=== PATIENT | male | born 1970 | race Caucasian/White ===

== ENCOUNTER 2017-02-13 10:10 | Inpatient (IN) | payer BC ==
[~2017-02-13 10:10] MED LIST: ACETAMINOPHEN 500 MG TAB PO ONE; PREGABALIN 150 MG CAP PO ONE
[2017-02-13] MEDS ORDERED: BUPIVACAINE/EPI 0.25% 30 ML SDV ONE ×2 (10:26→13:07)
[2017-02-13] MEDS ORDERED: ACETAMINOPHEN 500 MG TAB ONE (10:30)
[2017-02-13] MEDS ORDERED: PREGABALIN 150 MG CAP ONE (10:31)
[2017-02-13] MEDS ORDERED: CEFAZOLIN 2 GM/DEXTROSE/100 ML BAG IV ONE (10:31)
[2017-02-13] MEDS ORDERED: LIDOCAINE 1% 2 ML INJ ONE (10:32)
[2017-02-13] MEDS ORDERED: ceFAZolin 2 GM/DEXTROSE 100 ML IV ONE (12:00)
[2017-02-13] MEDS ORDERED: DEXAMETHASONE 4 MG/ML VIAL ONE ×2 (13:02)
[2017-02-13] MEDS ORDERED: fentaNYL 100 MCG/2 ML INJ ONE (13:03)
[2017-02-13] MEDS ORDERED: PROPOFOL/EMULSION 500 MG/50 ML BOTTLE IV ONE (13:03)
[2017-02-13] MEDS ORDERED: ONDANSETRON 4 MG/2 ML VIAL ONE (13:04)
[2017-02-13] MEDS ORDERED: LIDOCAINE 2% JELLY 5 ML TUBE ONE (13:04)
[2017-02-13] MEDS ORDERED: LIDOCAINE 2% 100 MG/5 ML SYR ONE (13:04)
[2017-02-13] MEDS ORDERED: MIDAZOLAM 2 MG/2 ML VIAL ONE (13:20)
[2017-02-13] MEDS ORDERED: morphINE PF 5 MG/10 ML INJ ONE (14:43)
[2017-02-13] MEDS ORDERED: PROPOFOL 200 MG/20 ML VIAL ONE (15:17)
[2017-02-13] MEDS ORDERED: BISACODYL 10 MG SUPP PR PRN (16:27)
[2017-02-13] MEDS ORDERED: POLYETHYLENE GLYCOL 3350 17 GM PKT PO PRN (16:27)
[2017-02-13] MEDS ORDERED: LACTULOSE 20 GM/30 ML UDCUP PO PRN (16:27)
[2017-02-13] MEDS ORDERED: ACETAMINOPHEN 325 MG TAB PO PRN (16:27)
[2017-02-13] MEDS ORDERED: ONDANSETRON 4 MG/2 ML VIAL IVP PRN ×2 (16:27→17:44)
[2017-02-13] MEDS ORDERED: MAGNESIUM HYDROXIDE 30 ML UDCUP PO PRN (16:27)
[2017-02-13] MEDS ORDERED: ALBUTEROL 60 PUFFS/8 GM MDI IH PRN (16:43)
[2017-02-13] MEDS ORDERED: TESTOSTERONE CYP IM SCH (16:45)
[2017-02-13] MEDS ORDERED: NALOXONE HCL 0.4 MG/ML INJ IVP PRN (17:44)
[2017-02-13] MEDS ORDERED: NARCOTIC DRIP BAG-TOTAL ALL TYPES EP PRN (17:44)
[2017-02-13] MEDS ORDERED: HYDROmorph 10MCG/ML&BUP 0.0625% in 100ML NS EP SCH (17:44)
[2017-02-13] MEDS ORDERED: diphenhydrAMINE 25 MG CAP PO PRN (17:44)
[2017-02-13] MEDS ORDERED: METOCLOPRAMIDE 10 MG/2 ML VIAL IVP PRN (17:44)
[2017-02-13] MEDS: SENNOSIDES/DOCUSATE SODIUM TAB PO SCH (21:19)
--- NOTE | 2017-02-13 23:37 | SUROPNOTE ---
[facility] Operative Report - Surgery OPERATION NOTE on Maurice Leal Surgery was performed at [facility] 13/02/17 Diagnosis:Retro torsion of femur Left, EBONY Indication: Failure to obtain satisfactory results with long standing conservative measures. Surgeon: Santana Gauthier MD A R Collections Rep: Luisito Smallwood MD Anaesthetic: General Operation: Open left derotational femoral osteotomy Procedure: Maurice was positioned supine on a distraction table, with the legs in a scissors position (operated leg leveled, contra-lateral leg hyperextended) so fluoroscopy could obtain both AP and lateral views. A 5 cm incision was made proximal to the greater trochanter (GT). Using a drill guide and a drill, an entry point was established at the tip of the GT followed by introduction of ball-tip guide wire introduced through the femoral canal. After measurements of required nail length and width, rimming was performed to 11 mm (in 0.5 mm increments) distal to the femoral isthmus. Rimming to 12.5 mm was performed to the level of the area of the planned osteotomy. An intramedullary saw (12 mm) was introduced into the femoral canal, 5 cm below the lesser trochanter. In small increments, the medullary saw performed a circumferential inside out cut through the femur. This cut was completed in an outside-in manner using a 4 mm osteotome. Just before the osteotomy was complete and displacement was confirmed with fluoroscopy, 2 Valeria pins were drilled into the femur bone ( one to the lateral GT, one to the supra-condylar region of the distal femur). Using fluoroscopic guidance the angle between the Valeria pins as measured with a goniometer and boot scale, the derotational osteotomy was performed by rotating the foot intward. The correction planned and obtained was approximately 25 degrees (internal rotation of the femur to a relative ante torsion). A 9 mm diameter/ 380 mm length inflatable nail was introduced into the femoral canal and was inflated with saline to obtain good intra-medullary purchase. Post-operative X-rays were obtained to confirm position and location of nail. Valeria pins were removed, ITB was approximated, and sub-cutis and skin layers were closed with absorbable suture/nylon/stables. After surgery, Maurice moved both lower limbs and had no NV compromise. ROM in neutral hip corresponded well with the torsion change. Evaluation under Anesthesia: Pre Hip scope: IR90 ER90 ABD Flexion Right 5 50 40 95 Left 5 40 40 95 Post: IR 90 Left 25 Post op instructions: 1. Nonweight bearing crutches for 6 weeks 2. Pain killers as prescribed 3. Follow up visit with me, as scheduled, where a rehab protocol would be discussed 4. Avoid hip external rotation for 4 weeks 5. Continuous SCDs Kind regards, Dr. Santana Gauthier .
[2017-02-14] MEDS: DIAZEPAM 2 MG TAB PO PRN ×2 (04:16→21:32)
[2017-02-14 05:22] LABS: HEMATOCRIT 43.7 % (40.0-51.0); HEMOGLOBIN 14.3 g/dL (13.7-17.5); MEAN CELL HEMOGLOBIN 29.1 pg (27.9-34.1); MEAN CELL HEMOGLOBIN CONCENTR. 32.7 g/dL (32.4-36.7); MEAN CELL VOLUME 88.8 fL (81.5-99.8); RED BLOOD CELL COUNT 4.92 10^6/uL (4.40-6.38); RED CELL DISTRIBUTION WIDTH 13.7 % (11.5-15.2)
[2017-02-14 05:40] LABS: ANION GAP 13 mEq/L (8-16); CARBON DIOXIDE 20 mEq/l (22-31); CHLORIDE 104 mEq/L (97-110); CREATININE 1.3 mg/dL (0.7-1.3); GLOMERULAR FILTRATION RATE 60; GLUCOSE 162 mg/dL (70-100); POTASSIUM 4.8 mEq/L (3.5-5.2); SODIUM 137 mEq/L (134-144)
[2017-02-14] MEDS: PANTOPRAZOLE SODIUM 40 MG TAB PO SCH (10:21)
[2017-02-14] MEDS: SENNOSIDES/DOCUSATE SODIUM TAB PO SCH ×2 (10:21→21:32)
[2017-02-14] MEDS: THYROID 60 MG TAB PO SCH (10:21)
[2017-02-14] MEDS: DC NARCS MISC SCH (10:22)
[2017-02-14] MEDS: REGARDING ANTICOAG MISC SCH (10:22)
--- NOTE | 2017-02-14 15:21 | SOAPPROG ---
SOAP Progress Note Assessment/Plan: Assessment: POD #1 s/p DFO L left side. Cath site clean and dry Prefers to leave the epidural running until other issues are sorted out. Plan: 02/14/17 15:[address] Coffman consulted regarding possible ureteral stone. Ambulate as needed. Reeval this PM Subjective: pt. complains of hiccups, nausea, flank pain, "just like my kidney stones feel" . No significant surgical pain. Objective: Vital Signs Temp Pulse Resp BP Pulse Ox 37.3 C 99 18 124/71 H 88 L 02/14/17 12:01 02/14/17 12:01 02/14/17 12:01 02/14/17 12:01 02/14/17 12:01 Laboratory Results 02/14/17 04:45 02/14/17 04:45 02/13/17 02/14/17 02/15/17 05:59 05:59 05:59 Intake Total 2009 Output Total 550 450 Balance 1460 -450 good strength in extremities - Time Spent With Patient Time Spent With Patient: 15 miniutes with patient and family ICD10 Worksheet Patient Problems: Problems Problem Status Onset Femoral abnormality Acute - ICD10 Problem Qualifiers (1) Femoral abnormality
--- NOTE | 2017-02-14 16:29 | GCON ---
[f rep st] CONSULTATION DATE OF CONSULTATION: 02/14/2017 REASON FOR CONSULT: History of renal stones, right back pain, nausea. HPI: This is a 47-year-old man, who is from [place], but came up to [place] to have a procedure done with Dr. Gauthier for a retrotorsion of the left femur. It appears that patient underwent the left femoral procedure without difficulty. Today, he began to experience right lower back pain, moderate in severity. Pain has been persistent and not radiating. Patient occasionally with movement will experience pain through the urethra; however, he does have a catheter in place. He has not seen any blood in the catheter bag. Does have nausea. He has a significant history of kidney stones and indeed passed a stone last week. He estimates he passes several stones yearly, and this has been going on for many years. He does have a urologist at home in [place] but has not pursued further metabolic workup for kidney stone management. PAST MEDICAL HISTORY: Includes kidney stones and retrotorsion of left femur. PAST SURGICAL HISTORY: Cholecystectomy. MEDICATIONS: Please refer to patient's chart. ALLERGIES: Adhesive tape, latex, penicillins, tiotropium bromide. FAMILY HISTORY: Significant for kidney stones with father. SOCIAL HISTORY: Patient lives in [place], is in the room with his parents. Again , visiting from [place]. PHYSICAL EXAMINATION: VITAL SIGNS: Blood pressure 124/71, heart rate 99, respiratory rate 18, O2 88 on room air, temperature 37.3. General: well developed, well nourished male in no distress HEENT: NCAT, EOM intact Neck: supple, no lAD Resp: normal breath sounds, no respiratory distress Cards: regular rate and rhythm, no lower extremity edema GI: Abd soft, nondistended, nontender to palpation : No CVA tenderness, no bladder tenderness or distention. catheter in place draining clear urine. Normal penis, testicles descended bilaterally and without tenderness MS: patient was supine but able to move upper extremities without difficulty. inteugment: normal skin color, no pallor Neuor: alert and oriented, affect appropriate to situation LABS: White blood cell count 14.75, hemoglobin 14.3, hematocrit 43.7, platelets 343. Chemistry: Sodium 137, potassium 4.8, chloride 104, carbon dioxide 20, anion gap 13, BUN 24, creatinine 1.3, glucose 162, calcium 9.0. Patient has had an x-ray done of the abdomen: Gallbladder clips present. No obvious stones noted on my read, but report is not in from radiologist. ASSESSMENT/PLAN: History of kidney stones, right lower back pain. Patient is scheduled to have a CAT scan done later today. Will withhold Flomax for now given recent orthopedic procedure on femur and increased vulnerability to falls. I have discussed with the patient that we would be unlikely to recommend surgical intervention unless he is having uncontrolled pain (which was well managed at time of exam today), hydronephrosis or UTI. He was satisfied with the care plan. I did encourage him to pursue further metabolic workup for kidney stones back in [place] with his primary urologist. . /[id number]/MODL MTDD
[2017-02-14 17:14] LABS: COLOR YELLOW; LEUKOCYTE ESTERASE,URINE NEGATIVE (NEGATIVE); NITRITE,URINE NEGATIVE (NEGATIVE)
[2017-02-14 17:18] LABS: RBC,URINE 25-50 /hpf (0-3)
--- NOTE | 2017-02-14 19:36 | SOAPPROG ---
SOAP Progress Note Assessment/Plan: Assessment: 1 day post op Left derotational femoral osteotomy Plan: Wean down PCEA tomorrow per Dr. Santos Transition to oral analgesia tomorrow Up with PT/OT Active Care continuous ASA 81 mg Post op instructions: 1. Nonweight bearing crutches for 6 weeks 2. Avoid hip external rotation for 4 weeks 3. Continuous SCDs 4. ASA 81mg 1 month 02/14/17 19:36 02/14/17 19:39 02/14/17 19:43 Subjective: Maurice's had a rough few hours since surgery. His work up for flank pain was negative for stones. He's now feeling much better, well pain controlled with PCEA. No cp, sob or nausea. Objective: Vital Signs Temp Pulse Resp BP Pulse Ox 37.1 C 95 19 120/73 93 02/14/17 19:31 02/14/17 19:31 02/14/17 19:31 02/14/17 19:31 02/14/17 19:31 Laboratory Results 02/14/17 04:45 02/14/17 04:45 02/13/17 02/14/17 02/15/17 05:59 05:59 05:59 Intake Total 2009 1500 Output Total 550 450 Balance 1460 1050 Well appearing in NAD Left hip: scattered ecchymosis dressings dry No LFCN numbness NVI distally Full ROM of left foot and ankle - Pending Discharge Pending Discharge Within 48 Hours: Yes Pending Discharge Date: 02/16/17 Pending Discharge Time: 11:00 ICD10 Worksheet Patient Problems: Problems Problem Status Onset Femoral abnormality Acute
[2017-02-15] MEDS: DIAZEPAM 2 MG TAB PO PRN (04:24)
[2017-02-15] MEDS ORDERED: oxyCODONE IR 5 MG TAB PO PRN ×2 (06:00→10:23)
[2017-02-15] MEDS: HYDROmorphONE/DILAUDID 4 MG TAB PO PRN ×5 (06:15→23:28)
[2017-02-15] MEDS: SENNOSIDES/DOCUSATE SODIUM TAB PO SCH ×2 (07:42→20:41)
[2017-02-15] MEDS: PANTOPRAZOLE SODIUM 40 MG TAB PO SCH ×2 (07:42→08:24)
[2017-02-15] MEDS: DC NARCS MISC SCH (08:24)
[2017-02-15] MEDS: REGARDING ANTICOAG MISC SCH (08:24)
[2017-02-15] MEDS ORDERED: ESOMEPRAZOLE MAGNESIUM 22.3 MG PO SCH (09:00)
[2017-02-15] MEDS ORDERED: DIAZEPAM 5 MG TAB ONE (10:19)
[2017-02-15] MEDS: THYROID 60 MG TAB PO SCH (10:24)
[2017-02-15] MEDS: DIAZEPAM 5 MG TAB PO PRN ×3 (10:24→23:28)
[2017-02-15] MEDS: ONDANSETRON DISINTEGRATING 4 MG TAB PO PRN ×3 (13:08→23:28)
[2017-02-15] MEDS: ESOMEPRAZOLE MAGNESIUM 22.3 MG PO SCH (13:09)
[2017-02-15] MEDS: ASPIRIN EC 81 MG TAB PO SCH (16:48)
--- NOTE | 2017-02-15 18:18 | SOAPPROG ---
SOAP Progress Note Assessment/Plan: Assessment: POD #1 s/p DFO L left side. Cath site clean and dry Prefers to leave the epidural running until other issues are sorted out. 3/ POD #2 s/p L DFO Hiccups better. Blood in urine, ?ojeda vs stone. Pain okay on po meds and no JULIO. Will pull JULIO Plan: 02/14/17 15:[address] Coffman consulted regarding possible ureteral stone. Ambulate as needed. Reeval this PM 02/15/17 18:16 JULIO out, tip intact po meds Objective: Vital Signs Temp Pulse Resp BP Pulse Ox 37.6 C 112 H 14 103/79 93 02/15/17 16:00 02/15/17 16:00 02/15/17 16:00 02/15/17 16:00 02/15/17 16:00 Laboratory Results 02/14/17 04:45 02/14/17 04:45 02/14/17 02/15/17 02/16/17 05:59 05:59 05:59 Intake Total 2009 1800 750 Output Total 550 1450 450 Balance 1460 350 300 ICD10 Worksheet Patient Problems: Problems Problem Status Onset Femoral abnormality Acute - ICD10 Problem Qualifiers (1) Femoral abnormality
[2017-02-16] MEDS: HYDROmorphONE/DILAUDID 4 MG TAB PO PRN ×5 (05:26→23:07)
[2017-02-16] MEDS: ONDANSETRON DISINTEGRATING 4 MG TAB PO PRN ×4 (05:27→23:07)
[2017-02-16] MEDS: SENNOSIDES/DOCUSATE SODIUM TAB PO SCH ×2 (07:41→20:35)
[2017-02-16] MEDS: ASPIRIN EC 81 MG TAB PO SCH (07:41)
[2017-02-16] MEDS: DIAZEPAM 5 MG TAB PO PRN ×3 (07:42→20:35)
[2017-02-16] MEDS: DC NARCS MISC SCH (07:43)
[2017-02-16] MEDS: REGARDING ANTICOAG MISC SCH (07:43)
[2017-02-16] MEDS: THYROID 60 MG TAB PO SCH (09:38)
[2017-02-16] MEDS: ESOMEPRAZOLE MAGNESIUM 22.3 MG PO SCH (12:14)
--- NOTE | 2017-02-16 14:18 | SOAPPROG ---
PALLAVI Progress Note Assessment/Plan: Assessment: 3 day post op Left derotational femoral osteotomy Plan: Dilaudid 4mg Up with PT/OT Active Care continuous ASA 81 mg Home tomorrow Femur X-Ray from Monday shows good alignment Post op instructions: 1. Nonweight bearing crutches for 6 weeks 2. Avoid hip external rotation for 4 weeks 3. Continuous SCDs 4. ASA 81mg 1 month 02/14/17 19:36 02/14/17 19:39 02/14/17 19:43 02/16/17 14:14 Subjective: Maurice was up with PT during our visit. His pain has been well controlled with the Dilaudid (the transition from PCEA to oral analgesia went fairly smoothly), muscle spasms well controlled with Valium. He's been having some nausea with taking the Dilaudid but this is well controlled. He feels ready to go when he can go up/down stairs. Objective: Vital Signs Temp Pulse Resp BP Pulse Ox 37.0 C 101 H 18 115/77 93 02/16/17 11:56 02/16/17 11:56 02/16/17 11:56 02/16/17 11:56 02/16/17 11:56 Laboratory Results 02/14/17 04:45 02/14/17 04:45 02/15/17 02/16/17 02/17/17 05:59 05:59 05:59 Intake Total 1800 750 Output Total 1450 650 Balance 350 100 Well appearing in NAD Left leg: scattered ecchymosis dressings dry some edema some LFCN numbness NVI distally full ROM of foot and ankle - Pending Discharge Pending Discharge Within 24 Hours: Yes Pending Discharge Date: 02/17/17 Pending Discharge Time: 11:00 ICD10 Worksheet Patient Problems: Problems Problem Status Onset Femoral abnormality Acute
--- NOTE | 2017-02-16 14:55 | SOAPPROG ---
SOAP Progress Note Assessment/Plan: Assessment: Plan: 02/16/17 14:54 Saw Maurice last night (9pm, 02/15) POD 2. HE was doing well, NV intact, pain well managed. Xr today looks good. We will plan on discharge once cleared by OT/PT and pain well controlled. Dr Gauthier Objective: Vital Signs Temp Pulse Resp BP Pulse Ox 37.0 C 101 H 18 115/77 93 02/16/17 11:56 02/16/17 11:56 02/16/17 11:56 02/16/17 11:56 02/16/17 11:56 Laboratory Results 02/14/17 04:45 02/14/17 04:45 02/15/17 02/16/17 02/17/17 05:59 05:59 05:59 Intake Total 1800 750 500 Output Total 1450 650 400 Balance 350 100 100 ICD10 Worksheet Patient Problems: Problems Problem Status Onset Femoral abnormality Acute
[2017-02-17] MEDS: ONDANSETRON DISINTEGRATING 4 MG TAB PO PRN ×2 (05:53→11:54)
[2017-02-17] MEDS: HYDROmorphONE/DILAUDID 4 MG TAB PO PRN ×2 (05:53→11:54)
[2017-02-17 07:46] VITALS: BP 118/73; PULSE 99; RESP 20; TEMP 98.3; O2SAT 95
[2017-02-17] MEDS: SENNOSIDES/DOCUSATE SODIUM TAB PO SCH (08:29)
[2017-02-17] MEDS: ASPIRIN EC 81 MG TAB PO SCH (08:29)
[2017-02-17] MEDS: DIAZEPAM 5 MG TAB PO PRN (08:35)
[2017-02-17] MEDS: THYROID 60 MG TAB PO SCH (11:33)
[2017-02-17] MEDS: ESOMEPRAZOLE MAGNESIUM 22.3 MG PO SCH (11:55)
[2017-02-17] MEDS: DC NARCS MISC SCH (12:09)
[2017-02-17] MEDS ORDERED: NAPROXEN SODIUM 220 MG TAB PO SCH (16:30)
[2017-02-20] MEDS ORDERED: TESTOSTERONE IM 100 MG/ML SYRINGE IM SCH (09:00)
== END 2017-02-17 13:37 | disposition home or self-care (01) | DRG 482 ==
LOC: F3N 10:10 → EDSTATUS 12:45 → F3N 19:56
PROVIDERS: ADMIT Orthopaedic Surgery Sports Medicine; ATTEND Orthopaedic Surgery Sports Medicine
PROC: 0QS706Z Reposition Left Upper Femur with Intramedullary Internal Fixation Device, Open Approach (ICD-10-PCS; principal; 2017-02-13 12:45)
DX: Q65.89 Other specified congenital deformities of hip (principal); M54.5 Low back pain; N20.0 Calculus of kidney; G47.33 Obstructive sleep apnea (adult) (pediatric); E03.9 Hypothyroidism, unspecified; J45.909 Unspecified asthma, uncomplicated; K21.9 Gastro-esophageal reflux disease without esophagitis; Z88.0 Allergy status to penicillin
CPT/HCPCS: 97116-GP; 97162-GP; 97165-GO; 97530-GP; 97535-GO; C1713; J0690; J1100; J1170; J2001; J2250; J2274; J2405; J2704; J3010

== ENCOUNTER 2017-06-12 09:41 | Day surgery (SDC) | payer BC ==
--- NOTE | 2017-06-08 08:46 | PDGENHP ---
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 Bilateral femoral retrotorsion 3. Left borderline hip dysplasia 4. S/P Lumbar spine surgery HISTORY OF PRESENT ILLNESS: Abiliois a 46 y.o.~~male~who I have had the pleasure to consult on today.~I have enjoyed meeting him. He~lives in [place], [place]. 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 ~Ti~is single; he~has no~children. ~Abilioenjoys watching TV and working on the computers. Maurice's bilateral~hip pain started 4-5 years ago, with no~recalled trauma or injury, and with no~previous complaints.~Abiliodoes not have~a known history of hip dysplasia. Presentation today is of~anterior, posterior, lateral, and groin bilateral~hip pain ( L > R ). ~The hip does not~wake him~at night and does~click and catch on him. Sitting can be uncomfortable~for him. Abiliodoes~report suffering from lower back pain episodes and he also has had back surgery in July,. Abiliohas~participated in physical therapy and has not~tried other conservative measures including chiropractic treatments and massage therapy. He~has not~ received sufficient symptomatic improvement. Abiliohas not~utilized medication for pain management, including NSAID and OTC acetaminophen. Abiliounderstands that he~has a hip and pelvis problem which should be researched and wishes to get a better understanding of his~hip status, followed by an establishment of a treatment strategy, hoping he~would be able to get back to his~well being active life. History: Past medical history: ~ Sleep apnoea, Asthma, Hypothyroidism, GERD, Sleeplessness. Relevant familial history: None which is relevant Past surgical history: No. Surgery Anesthesia Year Outcome 1 Triple hernia surgery [place] 2016 Good 2 Back surgery [place] 2016 Good 3 Gall bladder removal GA 2006 Good 4 Left elbow surgery [place] 2016 Good Abiliodenies problematic issues with general anesthesia in the past. I have reviewed, verified and agree with the past medical, surgical, family and social history. Current Medications:~has a current medication list which includes the following prescription(s): albuterol hfa, esomeprazole, testosterone cypionate, and thyroid (pork). ALLERGIES:~has No Known Allergies. Objective: Physical Examination: Abiliois 5~feet 9~inches tall and weighs~187~Lbs. Abiliois AAO x3; he~is well- nourished, in NAD. Skin is warm and dry. ~Breathing is non-labored. ~CV with RRR by pulse. Abdomen is soft, NTND. Currently, he~walks with a normal~gait. Trendelenburg sign is negative~and proprioception~is reduced, left~side. He~presents~with no~signs of joint laxity.~Beightons Score: 0 Lower spine examination is negative~for sciatic or femoral nerve irritation with negative~SLR &~femoral stretch tests. Range of motion of the spine is normal~for flexion, extension, and rotations, with no~associated pain. Surgical scar over lumbar spine and mild tenderness around the scar. Strength and pulses are normal - bilaterally. Sensation is decreased on his left heel and medial border of foot. Ankles and knees exams are normal~and no~mal-alignment is evident. He~has~no leg length discrepancy. Thigh circumference is symmetric~with no evidence for muscle atrophy~on both~ sides. Hip ROM (degrees): FL ER At 90~hip FL IR At 90~hip FL AB AD EX IR Neutral hip ER Neutral hip R 90 55 0 45 5 5 15 50 L 95 50 0 45 5 5 15 45 Specific hip and pelvis tests: Quadrant SHELLY Roll Add. Longus R + +++ Negative + L + +++ ( Posterior Capsule) Negative + Glut. Med ITB Pos. Imp R ++ 5/5 strength + 5/5 strength Negative L + 5/5 strength + 5/5 strength Negative Squeeze test measured weak Bony Symphysis pubis is pain free~to touch while concentric activity of the rectus abdominis, does not~produce pain at its insertion. Ilio Psos specific tests are negative for pain during cycling for both hips~and remarkable for no snap. HF has no pain on ~both hips. Anterior and posterior ~capsule tenderness on both hips ( L > R ). Greater trochanteric burse is painful~on both hips~( L > R ). Piriformis tests: FAIR is negative, with no~local signs of neuritis related to sciatic nerve. SIJs examination is normal~with normal~SHELLY in relation and local tenderness. Hamstrings tests are negative~functional contraction and negative~tendinopathy both hips. On a daily basis, the following percentages reflect Maruice's overall total pain: Deep hip: 90% GT: 10% Imaging: Radiology studies which I~have personally reviewed, analyzed and measured are below: XR: AP of the hip and pelvis: Performed in a good~technique Coccyx to pubic symphysis distance 1.2~cm. 4 Degrees~caudal. [place]~Lines are preserved. Minimal~Pathological signs are seen in the Symphysis Pubis. Minimal~Pathological signs are seen at the Ischial~tuberosity. ~ Specific measurements show: NSA~ LCE Sourcil~Angle Sharp's angle Lat. Cam Lat. Pincer C.Over~sign Head~Coverage % ATDmm R N 28 8 41 ++ - 12-1 79 N L N 24 10 42 ++ - - 75 N Pos. wall sign ISS NAD ~~Dysplasia Comments R + Negative 12.0mm + L + Negative 10.7~mm + Sclerosis Sup. Lat. OA Cysts Joint Space-WBZ Joint Space-Medial R + + Negative 4.8~mm 4.1~mm L + + Negative 5.0~mm 4.4~mm X Table lateral: Anterior cam lesion is seen~on both hips. Alpha Angle: ~ Right 77~dergrees Left 75~degrees MRI shows:~Mild cartilage damage - overall good status, no sub chondral edema/ cyst on the left. Right hip: CT: Right hip: Lateral center edge angle: 24 degrees Anterior center edge angle: 49 degrees Equatorial acetabular version angle: 15 degrees anteverted. Cranial acetabular version angle: 3 degrees retroverted. Femoral neck shaft angle: 136 degrees Femoral neck version angle: Retroverted 5 degrees Femoral shaft torsion angle: Lateralized 5 degrees Left hip: Lateral center edge angle: 27 degrees Anterior center edge angle: 48 degrees Equatorial acetabular version angle: 13 degrees anteverted. Cranial acetabular version angle: 1 degrees retroverted. Femoral neck shaft angle: 136 degrees Femoral neck version angle: Retroverted 3 degrees Femoral shaft torsion angle: Lateralized 9 degrees In order to differentiate between the various possible sources of left hip pain Maurice~opted to move forward with an intra articular injection today in clinic. After verbal consent was obtained and Maurice~voiced understanding of risks of infection, misplaced injection, fat or skin atrophy or injection into unintended structures, skin was prepped and draped in routine sterile fashion. With sterile technique, after local skin and subcutaneous tissues were injected with 5cc 1% lidocaine, an injection of 2cc of Kenalog 40 and 5cc of 1% lidocaine +marcaine~was injected into Maurice's left hip joint~without complication. The procedure was well tolerated. Abilionoted improved symptoms with activity immediately after injection. The injection took 75% of the pain~away, confirming ~the hip joint as the major source of his~pain. Impression and plan:~ Abiliois a 46 y.o.~active male~suffering from symptomatic bilateral~hip pain due to bilateral femoroacetabular impingement (EBONY) cam type, with~resultant labral tear ( L > R ), femoral retrotorsion (Clinical) and borderline dysplasia~ causing significant disability to him~and altering~his~sport and life activities. Physical examination, imaging, and his~story correspond with the diagnosis mentioned above. I explained that femoroacetabular impingement (EBONY) arises due to a bony or soft tissue conflict between the femur (ball) and acetabulum (socket) caused by an abnormality in the shape of the hip joint. Over time, repetitive impingement can result in damage to the labrum and adjacent surface cartilage within the socket, ultimately giving rise to progressive osteoarthritis of the hip.~He also has retrotorsion of his~femur on both sides which contributes to the impingement significantly. I explained that although a labral tear can be a source of pain, it is rarely the root of the problem and typically occurs secondary to an underlying abnormality in the shape and mechanics of the hip joint. ~ I reviewed conservative treatment options for EBONY including activity modification to avoid positions of impingement, physical therapy, non-steroidal anti-inflammatory medications, and various injections (corticosteroid and PRP) aimed at reducing inflammation in the hip joint or/and preventing dynamic impingement. Although these measures may help to buy time, they are not a definitive solution to the problem given the underlying abnormality in the shape of the hip joint. Patients who have failed conservative management and continue to experience symptoms are candidates for definitive surgical treatment, which may consist of hip arthroscopy alone or in combination with more invasive bony realignment procedures of the~femur called ~derotational femoral osteotomy (DFO) . I reviewed the technical aspects of hip arthroscopy including risks, benefits, and expected course of recovery. Maurice~understands that hip arthroscopy is a minimally invasive outpatient procedure carried out through small incisions on the outer aspect of the hip joint. During surgery, the labral tear will be identified and either repaired or reconstructed~using bone anchors and suture material. Additionally, any excessive bone will be removed with a high-speed vannessa to reshape the hip joint and restore normal anatomy. Risks include infection, bleeding, injury to nearby nerves or vessels, stiffness, persistent pain, instability, venous thromboembolic disease, and traction related complications including temporary foot numbness. Rarely, revision surgery may be required to address these problems. Overall recovery takes approximately 4~~ 8~months depending on the extent of damage and degree of repair. In the event that the labral tissue quality is inadequate for successful repair and healing, Maurice~understands that a labral reconstruction will be performed. This procedure entails placing a cadaver tissue graft within the hip joint and stabilizing it with bone anchors to build a new labrum. The overall recovery time for labral reconstruction is similar to that of labral repair, although the surgical procedure takes longer to perform. I reviewed the technical aspects of derotational femoral osteotomy (DFO) including risks, benefits, and expected course of recovery.~Abiliounderstands that DFO is a minimally invasive inpatient procedure carried out through a small incision on the outer aspects of the hip joint. The femur bone is cut, realigned, and stabilized with a andi. Risks, potential complications, side effects and recovery from surgical procedure were discussed in length.~ Abiliowill review the info presented. In order to obtain more detailed information regarding the alignment, orientation, and shape of the bony hip and pelvis I ordered~a CT scan. The results of the CT scan, including femoral torsion and acetabular version measured values and 3D images, will aid me in deciding on the best treatment strategy and surgical pre-planning. Abiliois going to contact us after completing his~imaging studies. Abiliois happy with this plan. I have also supplied him~with handouts, outlining the expected surgical treatment and rehab involved. I wish~Abilioall the best, ~~ Brendon Briones MD History Information - Allergies/Home Medication List Allergies/Adverse Reactions: adhesive tape Allergy (Verified 01/17/17 10:36) Rash latex Allergy (Verified 01/17/17 10:36) Rash Penicillins Allergy (Verified 01/17/17 10:36) Itching tiotropium bromide [From Spiriva with HandiHaler] Allergy (Verified 01/17/17 10: 36) Other-Enter Comments Home Medications: Albuterol [Proventil Inhaler HFA (*)] 1 - 2 puffs IH Q4H PRN 01/17/17 [Last Taken 02/07/17] Esomeprazole Magnesium [Nexium 24Hr] 22.3 mg PO DAILY 01/17/17 [Last Taken 06/11 20:30] Testosterone Cyp [Depo-Testosterone 100mg/ml inj (*)] 100 mg IM MO 01/17/17 [ Last Taken 06/12/17 07:30] Levothyroxine [Synthroid 75 mcg (*)] 75 mcg PO DAILY06 04/18/17 [Last Taken 07:30] Herbal Drugs 04/25/17 [Last Taken 06/12/17 07:30] I have personally reviewed and updated: medical history - Social History Smoking Status: Current every day smoker
[2017-06-12] MEDS ORDERED: LR 1,000 ML IV ONE (10:08)
[2017-06-12] MEDS ORDERED: LIDOCAINE 1% 2 ML INJ ID PRN (10:08)
[2017-06-12] MEDS ORDERED: BUPIVACAINE/EPI 0.25% 30 ML SDV ONE (10:36)
[2017-06-12] MEDS ORDERED: PREGABALIN 150 MG CAP PO ONE (11:38)
[2017-06-12] MEDS ORDERED: ACETAMINOPHEN 500 MG TAB PO ONE (11:38)
[2017-06-12] MEDS ORDERED: CLINDAMYCIN 900 MG/DEXTROSE 50 ML IV ONE (11:38)
[2017-06-12] MEDS ORDERED: CEFAZOLIN 2 GM/DEXTROSE/100 ML BAG IV ONE (11:40)
[2017-06-12] MEDS ORDERED: MIDAZOLAM 2 MG/2 ML VIAL ONE (11:59)
[2017-06-12] MEDS ORDERED: MIDAZOLAM 2 MG/2 ML VIAL IVP ONE (12:00)
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
[2017-06-12] MEDS ORDERED: PROPOFOL/EMULSION 500 MG/50 ML BOTTLE IV ONE ×2 (12:08→13:41)
[2017-06-12] MEDS ORDERED: DEXAMETHASONE 4 MG/ML VIAL ONE (12:08)
[2017-06-12] MEDS ORDERED: fentaNYL 100 MCG/2 ML INJ ONE ×2 (12:08→12:56)
[2017-06-12] MEDS ORDERED: ONDANSETRON 4 MG/2 ML VIAL ONE (12:08)
[2017-06-12] MEDS ORDERED: LIDOCAINE 2% 100 MG/5 ML SYR ONE (12:08)
[2017-06-12] MEDS ORDERED: LIDOCAINE 2% JELLY 5 ML TUBE ONE (12:08)
[2017-06-12] MEDS ORDERED: LABETALOL HCL 50 MG/10 ML SYR ONE (14:01)
[2017-06-12] MEDS ORDERED: HYDROmorphONE/DILAUDID 2 MG/ML INJ ONE (14:13)
[2017-06-12] MEDS ORDERED: PHENYLEPHRINE HCL 100 MCG/ML SYR ONE (14:33)
[2017-06-12] MEDS ORDERED: NALOXONE HCL 0.4 MG/ML INJ ONE (15:25)
[2017-06-12] MEDS ORDERED: HYDROmorphONE/DILAUDID 1 MG/ML SYR IVP PRN ×2 (15:34)
[2017-06-12] MEDS ORDERED: ONDANSETRON 4 MG/2 ML VIAL IVP PRN (15:34)
[2017-06-12] MEDS ORDERED: MEPERIDINE 25 MG/ML SYR IVP PRN (15:34)
[2017-06-12] MEDS ORDERED: HYDROCODONE/APAP 5/325 TAB PO PRN (15:34)
[2017-06-12] MEDS ORDERED: METOCLOPRAMIDE 10 MG/2 ML VIAL IVP PRN (15:34)
[2017-06-12] MEDS ORDERED: DEXAMETHASONE 4 MG/ML VIAL IVP PRN (15:34)
[2017-06-12] MEDS ORDERED: OXYCODONE/APAP 5/325 TAB PO PRN (15:34)
[2017-06-12] MEDS ORDERED: fentaNYL 100 MCG/2 ML INJ IVP PRN ×2 (15:34)
[2017-06-12] MEDS ORDERED: ACETAMINOPHEN 500 MG TAB PO PRN (15:34)
[2017-06-12] MEDS ORDERED: LR 500 ML IV PRN (15:34)
[2017-06-12] MEDS ORDERED: LABETALOL HCL 50 MG/10 ML SYR IVP PRN (15:34)
[2017-06-12] MEDS ORDERED: PROMETHAZINE HCL 25 MG/ML INJ IVP PRN (15:34)
[2017-06-12] MEDS ORDERED: NALOXONE HCL 0.4 MG/ML INJ IVP PRN (15:34)
[2017-06-12] MEDS ORDERED: ALBUTEROL 3 ML DEYVIAL IH PRN (15:34)
[2017-06-12 16:25] VITALS: PULSE 87; TEMP 98.4
[2017-06-12 17:44] VITALS: RESP 18
--- NOTE | 2017-06-12 18:44 | POSTANESTH ---
Post Anesthetic Evaluation Cardiovascular Status: Normal, Stable Respiratory Status: Normal, Stable Level of Consciousness/Mental Status: Can Participate in Eval Pain Control: Adequate, Prn Tx Ordered Nausea/Vomiting Control: Adequate, Prn Tx Ordered Complications Possibly Related to Anesthesia: None Noted
[2017-06-12 20:02] VITALS: BP 101/67; O2SAT 89
== END 2017-06-12 19:56 | disposition home or self-care (01) ==
LOC: FSGY 09:41
PROVIDERS: ATTEND Orthopaedic Surgery Sports Medicine
PROC: 0QQ64ZZ Repair Right Upper Femur, Percutaneous Endoscopic Approach (ICD-10-PCS; principal; 2017-06-12 11:00)
PROC: 0MQL4ZZ Repair Right Hip Bursa and Ligament, Percutaneous Endoscopic Approach (ICD-10-PCS; principal; 2017-06-12 11:00)
DX: Q65.89 Other specified congenital deformities of hip (principal); M76.891 Other specified enthesopathies of right lower limb, excluding foot; M24.151 Other articular cartilage disorders, right hip; G47.33 Obstructive sleep apnea (adult) (pediatric)
CPT/HCPCS: 29914; 29916; 76001; C1769; C1713; J0171; J0690; J1100; J1170; J2001; J2250; J2310; J2370; J2405; J2704; J3010

== ENCOUNTER 2017-06-19 08:15 | Inpatient (IN) | payer BC ==
--- NOTE | 2017-06-16 14:04 | PDGENHP ---
History and Physical - Chief Complaint Right Hip pain - History of Present Illness 1. Bilateral~Femoroacetabular impingement (EBONY) Cam type, with~resultant labral tear ( L > R ) 2. Bilateral femoral retrotorsion 3. Left borderline hip dysplasia 4. S/P Lumbar spine surgery HISTORY OF PRESENT ILLNESS: Abiliois a 47 y.o.~~male~who I have had the pleasure to consult on today.~I have enjoyed meeting him. He~lives in [place], [place]. 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 ~He~is single; he~has no~children. ~Abilioenjoys watching TV and working on the computers. Maurice's bilateral~hip pain started 4-5 years ago, with no~recalled trauma or injury, and with no~previous complaints.~Abiliodoes not have~a known history of hip dysplasia. Presentation today is of~anterior, posterior, lateral, and groin bilateral~hip pain ( L > R ). ~The hip does not~wake him~at night and does~click and catch on him. Sitting can be uncomfortable~for him. Abiliodoes~report suffering from lower back pain episodes and he also has had back surgery in July,. Abiliohas~participated in physical therapy and has not~tried other conservative measures including chiropractic treatments and massage therapy. He~has not~ received sufficient symptomatic improvement. Abiliohas not~utilized medication for pain management, including NSAID and OTC acetaminophen. Abiliounderstands that he~has a hip and pelvis problem which should be researched and wishes to get a better understanding of his~hip status, followed by an establishment of a treatment strategy, hoping he~would be able to get back to his~well being active life. History: Past medical history: ~ Sleep apnoea, Asthma, Hypothyroidism, GERD, Sleeplessness. Relevant familial history: None which is relevant Past surgical history: No. Surgery Anesthesia Year Outcome 1 Triple hernia surgery GA 2016 Good 2 Back surgery GA 2016 Good 3 Gall bladder removal GA 2006 Good 4 Left elbow surgery GA 2016 Good Abiliodenies problematic issues with general anesthesia in the past. I have reviewed, verified and agree with the past medical, surgical, family and social history. Current Medications:~has a current medication list which includes the following prescription(s): albuterol hfa, esomeprazole, testosterone cypionate, and thyroid (pork). ALLERGIES:~has No Known Allergies. Objective: Physical Examination: Abiliois 5~feet 9~inches tall and weighs~187~Lbs. Abiliois AAO x3; he~is well- nourished, in NAD. Skin is warm and dry. ~Breathing is non-labored. ~CV with RRR by pulse. Abdomen is soft, NTND. Currently, he~walks with a normal~gait. Trendelenburg sign is negative~and proprioception~is reduced, left~side. He~presents~with no~signs of joint laxity.~Beightons Score: 0 Lower spine examination is negative~for sciatic or femoral nerve irritation with negative~SLR &~femoral stretch tests. Range of motion of the spine is normal~for flexion, extension, and rotations, with no~associated pain. Surgical scar over lumbar spine and mild tenderness around the scar. Strength and pulses are normal - bilaterally. Sensation is decreased on his left heel and medial border of foot. Ankles and knees exams are normal~and no~mal-alignment is evident. He~has~no leg length discrepancy. Thigh circumference is symmetric~with no evidence for muscle atrophy~on both~ sides. Hip ROM (degrees): FL ER At 90~hip FL IR At 90~hip FL AB AD EX IR Neutral hip ER Neutral hip R 90 55 0 45 5 5 15 50 L 95 50 0 45 5 5 15 45 Specific hip and pelvis tests: Quadrant SHELLY Roll Add. Longus R + +++ Negative + L + +++ ( Posterior Capsule) Negative + Glut. Med ITB Pos. Imp R ++ 5/5 strength + 5/5 strength Negative L + 5/5 strength + 5/5 strength Negative Squeeze test measured weak Bony Symphysis pubis is pain free~to touch while concentric activity of the rectus abdominis, does not~produce pain at its insertion. Ilio Psos specific tests are negative for pain during cycling for both hips~and remarkable for no snap. HF has no pain on ~both hips. Anterior and posterior ~capsule tenderness on both hips ( L > R ). Greater trochanteric burse is painful~on both hips~( L > R ). Piriformis tests: FAIR is negative, with no~local signs of neuritis related to sciatic nerve. SIJs examination is normal~with normal~SHELLY in relation and local tenderness. Hamstrings tests are negative~functional contraction and negative~tendinopathy both hips. On a daily basis, the following percentages reflect Maurice's overall total pain: Deep hip: 90% GT: 10% Imaging: Radiology studies which I~have personally reviewed, analyzed and measured are below: XR: AP of the hip and pelvis: Performed in a good~technique Coccyx to pubic symphysis distance 1.2~cm. 4 Degrees~caudal. [place]~Lines are preserved. Minimal~Pathological signs are seen in the Symphysis Pubis. Minimal~Pathological signs are seen at the Ischial~tuberosity. ~ Specific measurements show: NSA~ LCE Sourcil~Angle Sharp's angle Lat. Cam Lat. Pincer C.Over~sign Head~Coverage % ATDmm R N 28 8 41 ++ - 12-1 79 N L N 24 10 42 ++ - - 75 N Pos. wall sign ISS NAD ~~Dysplasia Comments R + Negative 12.0mm + L + Negative 10.7~mm + Sclerosis Sup. Lat. OA Cysts Joint Space-WBZ Joint Space-Medial R + + Negative 4.8~mm 4.1~mm L + + Negative 5.0~mm 4.4~mm X Table lateral: Anterior cam lesion is seen~on both hips. Alpha Angle: ~ Right 77~dergrees Left 75~degrees MRI shows:~Mild cartilage damage - overall good status, no sub chondral edema/ cyst on the left. Right hip: CT: Right hip: Lateral center edge angle: 24 degrees Anterior center edge angle: 49 degrees Equatorial acetabular version angle: 15 degrees anteverted. Cranial acetabular version angle: 3 degrees retroverted. Femoral neck shaft angle: 136 degrees Femoral neck version angle: Retroverted 5 degrees Femoral shaft torsion angle: Lateralized 5 degrees Left hip: Lateral center edge angle: 27 degrees Anterior center edge angle: 48 degrees Equatorial acetabular version angle: 13 degrees anteverted. Cranial acetabular version angle: 1 degrees retroverted. Femoral neck shaft angle: 136 degrees Femoral neck version angle: Retroverted 3 degrees Femoral shaft torsion angle: Lateralized 9 degrees In order to differentiate between the various possible sources of left hip pain Maurice~opted to move forward with an intra articular injection today in clinic. After verbal consent was obtained and Maurice~voiced understanding of risks of infection, misplaced injection, fat or skin atrophy or injection into unintended structures, skin was prepped and draped in routine sterile fashion. With sterile technique, after local skin and subcutaneous tissues were injected with 5cc 1% lidocaine, an injection of 2cc of Kenalog 40 and 5cc of 1% lidocaine +marcaine~was injected into Maurice's left hip joint~without complication. The procedure was well tolerated. Abilionoted improved symptoms with activity immediately after injection. The injection took 75% of the pain~away, confirming ~the hip joint as the major source of his~pain. Impression and plan:~ Abiliois a 47 y.o.~active male~suffering from symptomatic bilateral~hip pain due to bilateral femoroacetabular impingement (EBONY) cam type, with~resultant labral tear ( L > R ), femoral retrotorsion (Clinical) and borderline dysplasia~ causing significant disability to him~and altering~his~sport and life activities. Physical examination, imaging, and his~story correspond with the diagnosis mentioned above. I explained that femoroacetabular impingement (EBONY) arises due to a bony or soft tissue conflict between the femur (ball) and acetabulum (socket) caused by an abnormality in the shape of the hip joint. Over time, repetitive impingement can result in damage to the labrum and adjacent surface cartilage within the socket, ultimately giving rise to progressive osteoarthritis of the hip.~He also has retrotorsion of his~femur on both sides which contributes to the impingement significantly. I explained that although a labral tear can be a source of pain, it is rarely the root of the problem and typically occurs secondary to an underlying abnormality in the shape and mechanics of the hip joint. ~ I reviewed conservative treatment options for EBONY including activity modification to avoid positions of impingement, physical therapy, non-steroidal anti-inflammatory medications, and various injections (corticosteroid and PRP) aimed at reducing inflammation in the hip joint or/and preventing dynamic impingement. Although these measures may help to buy time, they are not a definitive solution to the problem given the underlying abnormality in the shape of the hip joint. Patients who have failed conservative management and continue to experience symptoms are candidates for definitive surgical treatment, which may consist of hip arthroscopy alone or in combination with more invasive bony realignment procedures of the~femur called ~derotational femoral osteotomy (DFO) . I reviewed the technical aspects of hip arthroscopy including risks, benefits, and expected course of recovery. Maurice~understands that hip arthroscopy is a minimally invasive outpatient procedure carried out through small incisions on the outer aspect of the hip joint. During surgery, the labral tear will be identified and either repaired or reconstructed~using bone anchors and suture material. Additionally, any excessive bone will be removed with a high-speed vannessa to reshape the hip joint and restore normal anatomy. Risks include infection, bleeding, injury to nearby nerves or vessels, stiffness, persistent pain, instability, venous thromboembolic disease, and traction related complications including temporary foot numbness. Rarely, revision surgery may be required to address these problems. Overall recovery takes approximately 4~~ 8~months depending on the extent of damage and degree of repair. In the event that the labral tissue quality is inadequate for successful repair and healing, Maurice~understands that a labral reconstruction will be performed. This procedure entails placing a cadaver tissue graft within the hip joint and stabilizing it with bone anchors to build a new labrum. The overall recovery time for labral reconstruction is similar to that of labral repair, although the surgical procedure takes longer to perform. I reviewed the technical aspects of derotational femoral osteotomy (DFO) including risks, benefits, and expected course of recovery.~Abiliounderstands that DFO is a minimally invasive inpatient procedure carried out through a small incision on the outer aspects of the hip joint. The femur bone is cut, realigned, and stabilized with a andi. Risks, potential complications, side effects and recovery from surgical procedure were discussed in length.~ Abiliowill review the info presented. In order to obtain more detailed information regarding the alignment, orientation, and shape of the bony hip and pelvis I ordered~a CT scan. The results of the CT scan, including femoral torsion and acetabular version measured values and 3D images, will aid me in deciding on the best treatment strategy and surgical pre-planning. Abiliois going to contact us after completing his~imaging studies. Abiliois happy with this plan. I have also supplied him~with handouts, outlining the expected surgical treatment and rehab involved. I wish~Abilioall the best, ~~ Brendon Briones MD History Information - Allergies/Home Medication List Allergies/Adverse Reactions: adhesive tape Allergy (Verified 01/17/17 10:36) Rash latex Allergy (Verified 01/17/17 10:36) Rash Penicillins Allergy (Verified 01/17/17 10:36) Itching tiotropium bromide [From Spiriva with HandiHaler] Allergy (Verified 01/17/17 10: 36) Other-Enter Comments Home Medications: Albuterol [Proventil Inhaler HFA (*)] 1 - 2 puffs IH Q4H PRN 01/17/17 [Last Taken 02/07/17] Esomeprazole Magnesium [Nexium 24Hr] 22.3 mg PO DAILY 01/17/17 [Last Taken 06/11 20:30] Testosterone Cyp [Depo-Testosterone 100mg/ml inj (*)] 100 mg IM MO 01/17/17 [ Last Taken 06/12/17 07:30] Levothyroxine [Synthroid 75 mcg (*)] 75 mcg PO DAILY06 04/18/17 [Last Taken 07:30] Herbal Drugs 04/25/17 [Last Taken 06/12/17 07:30] I have personally reviewed and updated: medical history - Social History Smoking Status: Never smoked
[~2017-06-19 08:15] MED LIST changes: +BUPIVACAINE/EPI 0.25% 30 ML SDV ONE; +CLINDAMYCIN 900 MG/DEXTROSE 50 ML IV ONE; +SCOPOLAMINE HYDROBROMIDE 1.5 MG PATCH TD ONE; +TRANEXAMIC ACID 1,000 MG in NS 100 ML IV ONE
[2017-06-19] MEDS ORDERED: LIDOCAINE 1% 2 ML INJ ID PRN (10:19)
[2017-06-19] MEDS ORDERED: LR 1,000 ML IV ONE (10:19)
[2017-06-19] MEDS ORDERED: ACETAMINOPHEN 500 MG TAB ONE (10:58)
[2017-06-19] MEDS ORDERED: PREGABALIN 150 MG CAP ONE (10:58)
[2017-06-19] MEDS ORDERED: SCOPOLAMINE HYDROBROMIDE 1.5 MG PATCH TD ONE (10:58)
[2017-06-19] MEDS ORDERED: CLINDAMYCIN 900 MG/DEXTROSE/50 ML BAG IV ONE (10:59)
[2017-06-19] MEDS ORDERED: MIDAZOLAM 2 MG/2 ML VIAL IVP ONE (12:02)
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
[2017-06-19 12:05] LABS: HEMATOCRIT 51.4 % (40.0-51.0); HEMOGLOBIN 17.1 g/dL (13.7-17.5)
[2017-06-19] MEDS ORDERED: ONDANSETRON 4 MG/2 ML VIAL ONE (12:22)
[2017-06-19] MEDS ORDERED: PROPOFOL/EMULSION 500 MG/50 ML BOTTLE IV ONE ×2 (12:22→13:59)
[2017-06-19] MEDS ORDERED: DEXAMETHASONE 4 MG/ML VIAL ONE ×2 (12:22)
[2017-06-19] MEDS ORDERED: morphINE PF 5 MG/10 ML INJ ONE (12:22)
[2017-06-19] MEDS ORDERED: fentaNYL 100 MCG/2 ML INJ ONE (12:22)
[2017-06-19] MEDS ORDERED: LIDOCAINE 2% 100 MG/5 ML SYR ONE (12:22)
[2017-06-19] MEDS ORDERED: LIDOCAINE 2% JELLY 5 ML TUBE ONE (12:34)
[2017-06-19] MEDS ORDERED: ROPIVACAINE HCL 150 MG/30 ML INJ ONE (12:44)
[2017-06-19] MEDS ORDERED: PHENYLEPHRINE HCL 100 MCG/ML SYR ONE ×2 (12:54→14:56)
[2017-06-19] MEDS ORDERED: epHEDrine SULFATE 10 MG/ML SYR ONE (12:54)
[2017-06-19] MEDS ORDERED: ONDANSETRON 4 MG/2 ML VIAL IVP PRN ×2 (13:14→16:00)
[2017-06-19] MEDS ORDERED: NALOXONE HCL 0.4 MG/ML INJ IVP PRN (13:14)
[2017-06-19] MEDS ORDERED: NARCOTIC DRIP BAG-TOTAL ALL TYPES EP PRN (13:14)
[2017-06-19] MEDS ORDERED: METOCLOPRAMIDE 10 MG/2 ML VIAL IVP PRN (13:14)
[2017-06-19] MEDS ORDERED: diphenhydrAMINE 25 MG CAP PO PRN (13:14)
[2017-06-19] MEDS ORDERED: VASOPRESSIN 20 UNIT/ML VIAL ONE (13:50)
[2017-06-19] MEDS ORDERED: ACETAMINOPHEN 325 MG TAB PO PRN (16:00)
[2017-06-19] MEDS ORDERED: LACTULOSE 20 GM/30 ML UDCUP PO PRN (16:00)
[2017-06-19] MEDS ORDERED: POLYETHYLENE GLYCOL 3350 17 GM PKT PO PRN (16:00)
[2017-06-19] MEDS ORDERED: MAGNESIUM HYDROXIDE 30 ML UDCUP PO PRN (16:00)
[2017-06-19] MEDS ORDERED: BISACODYL 10 MG SUPP PR PRN (16:00)
[2017-06-19] MEDS ORDERED: ONDANSETRON DISINTEGRATING 4 MG TAB PO PRN (16:00)
[2017-06-19] MEDS ORDERED: DIAZEPAM 10 MG TAB PO PRN (16:04)
[2017-06-19] MEDS ORDERED: ALBUTEROL 60 PUFFS/8 GM MDI IH PRN (16:06)
[2017-06-19] MEDS ORDERED: ALBUTEROL 200 PUFFS/18 GM MDI IH PRN (16:15)
[2017-06-19] MEDS ORDERED: TESTOSTERONE CYP IM SCH (16:15)
[2017-06-19] MEDS ORDERED: NAPROXEN 220 MG PO SCH (21:00)
--- NOTE | 2017-06-19 21:35 | SUROPNOTE ---
[facility] Operative Report - Surgery Surgery was performed in [facility] on 06/19/17 Diagnosis:Retro torsion of femur Right, EBONY Indication:Failure to obtain satisfactory results with long standing conservative measures. Surgeon: Santana Gauthier MD Computer Systems Administrator: Royce MCCANN Anaesthetic: General Operation: Open Rightderotational femoral osteotomy Procedure: Aidan positioned supine on a distraction table, with the legs in a scissors position (operated leg leveled, contra-lateral leg hyperextended) so fluoroscopy could obtain both AP and lateral views. A 5cm incision was made proximal to the greater trochanter (GT). Using a drill guide and a drill, an entry point was established at the tip of the GT followed by introduction of ball-tip guide wireintroduced through the femoral canal. After measurements of required nail length and width, rimming was performed to 11mm (in 0.5 mm increments) distal to the femoral isthmus. Rimming to12.5mm was performedto the level of the area of the planned osteotomy. An intramedullary saw (12mm) was introduced into the femoral canal, 5cm below the lesser trochanter. In small increments, the medullary saw performed a circumferential inside out cut through the femur. This cut was completed in an outside-in manner using a 4mm osteotome. Just before the osteotomy was complete and displacement was confirmed with fluoroscopy, 2 Valeria pins were drilledinto the femur bone ( one to the lateral GT, one to the supra-condylar region of the distal femur). Using fluoroscopic guidance the angle between the Valeria pinsas measured with a goniometerand boot scale, the derotational osteotomy was performed by rotating the foot intward. The correction planned and obtained was approximately 25degrees (internal rotation of the femur to a relative ante torsion). A 9mmdiameter/ 380mm length inflatable nail was introduced into the femoral canal and was inflated with saline to obtain good intra-medullary purchase. Post-operative X-rays were obtained to confirm position and location of nail. Valeria pins were removed,ITB was approximated, and sub-cutis and skin layers were closed with absorbable suture/nylon/stables. After surgery,Markmoved both lower limbs and had no NV compromise. ROM in neutral hip corresponded well with the torsion change. Blood loss estimate - 100ml Post op instructions: 1. Nonweight bearing crutches for 6 weeksdue to 2. Pain killers as prescribed 3. Follow up visit with me, as scheduled, where a rehab protocol would be discussed 4. Avoid hip external rotation for 4 weeks 5. Continuous SCDs Kind regards, Dr. Santana Gauthier .
[2017-06-19] MEDS: NAPROXEN SODIUM 220 MG TAB PO SCH (22:12)
[2017-06-19] MEDS: SENNOSIDES/DOCUSATE SODIUM TAB PO SCH (22:15)
[2017-06-19] MEDS: DIAZEPAM 5 MG TAB PO PRN (22:25)
[2017-06-20] MEDS: DIAZEPAM 5 MG TAB PO PRN ×4 (01:14→20:22)
[2017-06-20 05:17] LABS: HEMATOCRIT 41.3 % (40.0-51.0); HEMOGLOBIN 13.4 g/dL (13.7-17.5); MEAN CELL HEMOGLOBIN 28.8 pg (27.9-34.1); MEAN CELL HEMOGLOBIN CONCENTR. 32.4 g/dL (32.4-36.7); MEAN CELL VOLUME 88.8 fL (81.5-99.8); RED BLOOD CELL COUNT 4.65 10^6/uL (4.40-6.38); RED CELL DISTRIBUTION WIDTH 14.4 % (11.5-15.2)
[2017-06-20 05:24] LABS: ANION GAP 11 mEq/L (8-16); CALCIUM 8.8 mg/dL (8.5-10.4); CARBON DIOXIDE 21 mEq/l (22-31); CHLORIDE 105 mEq/L (97-110); CREATININE 1.6 mg/dL (0.7-1.3); GLOMERULAR FILTRATION RATE 47; GLUCOSE 145 mg/dL (70-100); POTASSIUM 5.8 mEq/L (3.5-5.2); SODIUM 137 mEq/L (134-144)
[2017-06-20] MEDS: LEVOTHYROXINE 75 MCG PO SCH (05:59)
[2017-06-20] MEDS: HYDROmorph 10MCG/ML&BUP 0.1% in 100ML NS EP SCH ×2 (06:45→23:59)
[2017-06-20] MEDS: NAPROXEN SODIUM 220 MG TAB PO SCH ×2 (08:38→20:22)
[2017-06-20] MEDS: SENNOSIDES/DOCUSATE SODIUM TAB PO SCH ×2 (08:38→20:22)
[2017-06-20] MEDS: NS 1,000 ML IV SCH ×2 (08:39→20:22)
[2017-06-20] MEDS: PANTOPRAZOLE SODIUM 40 MG TAB PO SCH (08:39)
[2017-06-20] MEDS: REGARDING ANTICOAG MISC SCH (09:00)
[2017-06-20] MEDS: DC NARCS MISC SCH (09:00)
[2017-06-20] MEDS ORDERED: NON-FORMULARY NEW DRUG (Esomeprazole Magnesium [Nexium 24hr] 22.3 MG) PO SCH (09:00)
[2017-06-20] MEDS ORDERED: PNEUMOCOCCAL 0.5ML VACCINE VIAL IM ONE (09:02)
--- NOTE | 2017-06-20 13:04 | SOAPPROG ---
SOAP Progress Note Assessment/Plan: Assessment: POD #1 sp DFO doing well, up walking, good strength, cath site clean and dry, 0 N/V got valium last night and today, minimal spasm Plan: continue JULIO today at same dose, adjust tomorrow. 06/20/17 13:02 Objective: Vital Signs Temp Pulse Resp BP Pulse Ox 37.1 C 98 15 109/65 93 06/20/17 11:25 06/20/17 12:45 06/20/17 12:45 06/20/17 12:45 06/20/17 12:45 Laboratory Results 06/20/17 04:55 06/20/17 04:55 06/19/17 06/20/17 06/21/17 05:59 05:59 05:59 Intake Total 2950 Output Total 650 185 Balance 2300 -185 ICD10 Worksheet Patient Problems: Problems Problem Status Onset Femoral abnormality Acute
[2017-06-21 05:45] LABS: ANION GAP 6 mEq/L (8-16); CALCIUM 8.3 mg/dL (8.5-10.4); CARBON DIOXIDE 26 mEq/l (22-31); CHLORIDE 108 mEq/L (97-110); CREATININE 1.1 mg/dL (0.7-1.3); GLOMERULAR FILTRATION RATE > 60; GLUCOSE 85 mg/dL (70-100); POTASSIUM 4.4 mEq/L (3.5-5.2); SODIUM 140 mEq/L (134-144)
[2017-06-21] MEDS: NS 1,000 ML IV SCH (06:05)
[2017-06-21] MEDS: LEVOTHYROXINE 75 MCG PO SCH (06:05)
[2017-06-21] MEDS: DIAZEPAM 5 MG TAB PO PRN ×3 (06:12→22:21)
[2017-06-21] MEDS: REGARDING ANTICOAG MISC SCH (07:53)
[2017-06-21] MEDS: DC NARCS MISC SCH (07:53)
[2017-06-21] MEDS: PANTOPRAZOLE SODIUM 40 MG TAB PO SCH (08:48)
[2017-06-21] MEDS: NAPROXEN SODIUM 220 MG TAB PO SCH ×2 (08:48→22:20)
[2017-06-21] MEDS: SENNOSIDES/DOCUSATE SODIUM TAB PO SCH ×2 (08:48→22:21)
--- NOTE | 2017-06-21 09:25 | SOAPPROG ---
SOAP Progress Note Assessment/Plan: Assessment: 1st post op day Right Derotational Femoral Osteotomy Plan: wean down epidural transition to oral analgesics up with PT/OT home in 1-2 days 06/21/17 09:21 Subjective: Maurice was seen last night at 2130. At that time he was doing very well, his pain managed with epidural. He has been up a few times with PT/OT. He denies any cp, sob, or nausea. Objective: Vital Signs Temp Pulse Resp BP Pulse Ox 36.9 C 98 16 112/69 99 06/21/17 08:01 06/21/17 08:01 06/21/17 08:01 06/21/17 08:01 06/21/17 08:01 Laboratory Results 06/20/17 04:55 06/21/17 04:39 06/20/17 06/21/17 06/22/17 05:59 05:59 05:59 Intake Total 2950 1650 Output Total 650 935 Balance 2300 715 Right hip/leg dressings clean dry intact edema surrounding ecchymosis NVI distally full ROM of foot and ankle - Pending Discharge Pending Discharge Within 48 Hours: Yes Pending Discharge Date: 06/23/17 Pending Discharge Time: 11:00 ICD10 Worksheet Patient Problems: Problems Problem Status Onset Femoral abnormality Acute
[2017-06-21] MEDS: HYDROmorphONE/DILAUDID 2 MG TAB PO SCH ×4 (10:40→22:21)
--- NOTE | 2017-06-21 16:50 | SOAPPROG ---
SOAP Progress Note Assessment/Plan: Assessment: 06/21/17 POD #2 sp DFO leg with some swelling today and increased pain, however is still manageable with po Dilauded (JULIO off since this AM). Bun/Cr returned to normal today with hydration POD #1 sp DFO doing well, up walking, good strength, cath site clean and dry, 0 N/V got valium last night and today, minimal spasm Plan: continue JULIO today at same dose, adjust tomorrow. 06/20/17 13:02 06/21/17 16:48 06/21/17 16:49 JULIO catheter pulled, tip intact, site clean and dry Objective: Vital Signs Temp Pulse Resp BP Pulse Ox 37.0 C 114 H 15 115/63 90 L 06/21/17 14:35 06/21/17 14:35 06/21/17 14:35 06/21/17 14:35 06/21/17 14:35 Laboratory Results 06/20/17 04:55 06/21/17 04:39 06/20/17 06/21/17 06/22/17 05:59 05:59 05:59 Intake Total 2950 1650 Output Total 650 935 200 Balance 2300 715 -200 ICD10 Worksheet Patient Problems: Problems Problem Status Onset Femoral abnormality Acute
[2017-06-21] MEDS: ASPIRIN EC 81 MG TAB PO SCH (18:15)
--- NOTE | 2017-06-21 22:23 | SOAPPROG ---
SOAP Progress Note Assessment/Plan: Assessment: Plan: 06/21/17 22:22 POD 2 Maurice is doing very well, NV intact, epi is out, swelling is minimal (using ice machine). He is feeling well and has no issues. Dr Gauthier Objective: Vital Signs Temp Pulse Resp BP Pulse Ox 37.7 C 115 H 16 127/74 H 93 06/21/17 19:19 06/21/17 19:19 06/21/17 19:19 06/21/17 19:19 06/21/17 19:19 Laboratory Results 06/20/17 04:55 06/21/17 04:39 06/20/17 06/21/17 06/22/17 05:59 05:59 05:59 Intake Total 2950 1650 150 Output Total 650 935 800 Balance 2300 715 650 ICD10 Worksheet Patient Problems: Problems Problem Status Onset Femoral abnormality Acute
[2017-06-22] MEDS: HYDROmorphONE/DILAUDID 2 MG TAB PO SCH ×6 (01:46→21:09)
[2017-06-22] MEDS: LEVOTHYROXINE 75 MCG PO SCH (05:55)
[2017-06-22] MEDS: SENNOSIDES/DOCUSATE SODIUM TAB PO SCH ×2 (08:30→21:14)
[2017-06-22] MEDS: NAPROXEN SODIUM 220 MG TAB PO SCH ×2 (08:30→21:08)
[2017-06-22] MEDS: ASPIRIN EC 81 MG TAB PO SCH (08:30)
[2017-06-22] MEDS: PANTOPRAZOLE SODIUM 40 MG TAB PO SCH (08:30)
[2017-06-22] MEDS: DIAZEPAM 5 MG TAB PO PRN ×3 (08:33→21:14)
--- NOTE | 2017-06-22 22:31 | SOAPPROG ---
SOAP Progress Note Assessment/Plan: Assessment: Plan: 06/21/17 22:22 POD 2 Maurice is doing very well, NV intact, epi is out, swelling is minimal (using ice machine). He is feeling well and has no issues. Dr Gauthier 06/22/17 22:31 POD 3 Doing well, getting ready for discharge. Dr Gauthier Objective: Vital Signs Temp Pulse Resp BP Pulse Ox 36.6 C 101 H 16 123/75 H 95 06/22/17 20:00 06/22/17 20:00 06/22/17 20:00 06/22/17 20:00 06/22/17 20:00 Laboratory Results 06/20/17 04:55 06/21/17 04:39 06/21/17 06/22/17 06/23/17 05:59 05:59 05:59 Intake Total 1650 150 0 Output Total 935 1200 500 Balance 535 -4357 -500 ICD10 Worksheet Patient Problems: Problems Problem Status Onset Femoral abnormality Acute
[2017-06-23] MEDS: HYDROmorphONE/DILAUDID 2 MG TAB PO SCH ×6 (02:27→21:29)
[2017-06-23] MEDS: LEVOTHYROXINE 75 MCG PO SCH (06:07)
[2017-06-23] MEDS: DIAZEPAM 5 MG TAB PO PRN ×2 (06:07→18:11)
[2017-06-23] MEDS: ASPIRIN EC 81 MG TAB PO SCH (08:05)
[2017-06-23] MEDS: PANTOPRAZOLE SODIUM 40 MG TAB PO SCH (08:05)
[2017-06-23] MEDS: SENNOSIDES/DOCUSATE SODIUM TAB PO SCH ×2 (08:05→21:29)
[2017-06-23] MEDS: NAPROXEN SODIUM 220 MG TAB PO SCH ×2 (08:05→21:28)
--- NOTE | 2017-06-23 12:11 | SOAPPROG ---
PALLAVI Progress Note Assessment/Plan: Assessment: 4th post op day Right Derotational Femoral Osteotomy Plan: oral analgesics up with PT/OT 06/21/17 09:21 06/23/17 12:09 Subjective: Maurice is doing well today. His pain is managed with oral analgesics, he denies any cp, no sob or nausea. He has been getting up with PT/OT. Objective: Vital Signs Temp Pulse Resp BP Pulse Ox 36.9 C 79 16 149/72 H 94 06/23/17 04:00 06/23/17 04:00 06/23/17 04:00 06/23/17 04:00 06/23/17 04:00 Laboratory Results 06/20/17 04:55 06/21/17 04:39 06/22/17 06/23/17 06/24/17 05:59 05:59 05:59 Intake Total 150 300 Output Total 1200 500 Balance -1050 -200 well appearing in NAD Right hip: decreased edema scattered ecchymosis NVI distally full ROM of foot and ankle ICD10 Worksheet Patient Problems: Problems Problem Status Onset Femoral abnormality Acute
[2017-06-24] MEDS: DIAZEPAM 5 MG TAB PO PRN ×3 (02:55→21:37)
[2017-06-24] MEDS: HYDROmorphONE/DILAUDID 2 MG TAB PO SCH ×6 (02:56→21:36)
[2017-06-24] MEDS: LEVOTHYROXINE 75 MCG PO SCH (06:34)
[2017-06-24] MEDS: NAPROXEN SODIUM 220 MG TAB PO SCH ×2 (08:33→21:35)
[2017-06-24] MEDS: SENNOSIDES/DOCUSATE SODIUM TAB PO SCH ×2 (08:33→21:37)
[2017-06-24] MEDS: PANTOPRAZOLE SODIUM 40 MG TAB PO SCH (08:34)
[2017-06-24] MEDS: ASPIRIN EC 81 MG TAB PO SCH (08:34)
--- NOTE | 2017-06-24 21:59 | SOAPPROG ---
SOAP Progress Note Assessment/Plan: Assessment: Plan: 06/21/17 22:22 POD 2 Maurice is doing very well, NV intact, epi is out, swelling is minimal (using ice machine). He is feeling well and has no issues. Dr Gauthier 06/22/17 22:31 POD 3 Doing well, getting ready for discharge. Dr Gauthier 06/24/17 21:55 Saw Maurice today, POD5. He is doing well overall but still very weak and hard for him to get out of bed. He reports on two instances were he fell trying to move to restroom/shower , and was hardly able to caught himself. Doesn't look like he feel safe. His left knee still weak from previous surgery and tend to buckle on him. Incisions today look good with expected swelling proximally around the lateral upper thigh. NVI. XR shows good alignment. I think we can start prepare him for discharge in the next day or two pending safe mobility and ADL. Dr Gauthier Objective: Vital Signs Temp Pulse Resp BP Pulse Ox 36.8 C 120 H 22 H 118/73 91 L 06/24/17 08:37 06/24/17 15:53 06/24/17 15:53 06/24/17 15:53 06/24/17 15:57 Laboratory Results 06/20/17 04:55 06/21/17 04:39 06/23/17 06/24/17 06/25/17 05:59 05:59 05:59 Intake Total 300 500 Output Total 493 863 4898 Balance -200 -500 -665 ICD10 Worksheet Patient Problems: Problems Problem Status Onset Femoral abnormality Acute
[2017-06-25] MEDS: HYDROmorphONE/DILAUDID 2 MG TAB PO SCH ×3 (02:09→10:17)
[2017-06-25] MEDS: LEVOTHYROXINE 75 MCG PO SCH (05:57)
[2017-06-25] MEDS: DIAZEPAM 5 MG TAB PO PRN (05:58)
[2017-06-25] MEDS: NAPROXEN SODIUM 220 MG TAB PO SCH (08:03)
[2017-06-25] MEDS: PANTOPRAZOLE SODIUM 40 MG TAB PO SCH (08:04)
[2017-06-25] MEDS: SENNOSIDES/DOCUSATE SODIUM TAB PO SCH (08:04)
[2017-06-25] MEDS: ASPIRIN EC 81 MG TAB PO SCH (08:04)
[2017-06-25 08:16] VITALS: BP 121/80; PULSE 100; RESP 12; TEMP 97.6
[2017-06-25 10:32] VITALS: O2SAT 97
== END 2017-06-25 11:28 | disposition home or self-care (01) | DRG 482 ==
LOC: F3N 09:54
PROVIDERS: ADMIT Orthopaedic Surgery Sports Medicine; ATTEND Orthopaedic Surgery Sports Medicine
PROC: 0Q8 Lower Bones, Division (ICD-10-PCS; principal; 2017-06-19 09:15)
PROC: 3E0S3CZ (ICD-10-PCS; principal; 2017-06-19 09:15)
PROC: 0QS606Z Reposition Right Upper Femur with Intramedullary Internal Fixation Device, Open Approach (ICD-10-PCS; principal; 2017-06-19 09:15)
PROC: 00H Central Nervous System and Cranial Nerves, Insertion (ICD-10-PCS; principal; 2017-06-19 09:15)
DX: Q74.2 Other congenital malformations of lower limb(s), including pelvic girdle (principal); G47.33 Obstructive sleep apnea (adult) (pediatric)
CPT/HCPCS: 97032-GP; 97116-GP; 97161-GP; 97166-GO; 97530-GO; 97530-GP; 97535-GO; C1713; C1769; G0009; J1100; J1170; J2001; J2250; J2274; J2370; J2405; J2704; J2765; J2795; J3010

== ENCOUNTER 2018-10-11 11:34 | Observation (INO) | payer BC ==
--- NOTE | 2018-10-11 06:31 | PDGENHP ---
History and Physical - Chief Complaint Bilateral Hip/leg pain - History of Present Illness 1.~Bilateral~Femoroacetabular impingement (EBONY) Cam type,~with~resultant labral tear 2. Bilateral femoral retrotorsion 3.~Left~borderline~hip~dysplasia 4. S/P Lumbar spine surgery HISTORY OF PRESENT ILLNESS: Abiliois a 48 y.o.~~male~who I have had the pleasure to consult on today. 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 ~Abilioenjoys watching TV and working on the computers. Maurice's~bilateral~hip pain started 4-5 years ago, with~no~recalled trauma or injury, and with no~previous complaints. Abiliodoes not have~a known history of hip dysplasia. Presentation today is of~anterior, posterior, lateral,~and groin~bilateral~hip pain ( L > R ). ~The hip~does not~wake him~at night and does~click and catch on him. Sitting~can be uncomfortable~for him.~Abiliodoes~report suffering from lower back pain episodes and he also has had back surgery in July,.~ Abiliohas~participated in physical therapy and has not~tried other conservative measures including chiropractic treatments and massage therapy.~Charlene~has not~ received sufficient symptomatic improvement. Abiliohas not~utilized medication for pain management, including NSAID and OTC acetaminophen. Abiliounderstands that he~has a hip and pelvis problem which should be researched and wishes to get a better understanding of his~hip status, followed by an establishment of a treatment strategy, hoping he~would be able to get back to his~well being active life. History: Past medical history:~~ Sleep apnoea, Asthma, Hypothyroidism, GERD, Sleeplessness. Relevant familial history:~None which is relevant~ ~ Past surgical history:~ No. Surgery Anesthesia Year Outcome 1 Triple hernia surgery [place] 2016 Good 2 Back surgery GA 2016 Good 3 Gall bladder removal GA 2006 Good 4 Left elbow surgery [place] 2016 Good Abiliodenies problematic issues with general anesthesia in the past. I have reviewed, verified and agree with the past medical, surgical, family and social history. Current Medications:~has a current medication list which includes the following prescription(s): albuterol hfa, esomeprazole, testosterone cypionate, and thyroid (pork). ALLERGIES:~has No Known Allergies. Objective: Physical Examination: Abiliois 5~feet 9~inches tall and weighs 187~Lbs. Abiliois AAO x3; he~is well- nourished, in NAD. Skin is warm and dry. ~Breathing is non-labored. ~CV with RRR by pulse. Abdomen is soft, NTND. Currently,~he~walks with a normal~gait. Trendelenburg sign is~negative~and proprioception is reduced,~left~side. He~presents with no~signs of joint laxity. Beightons Score:~0 Lower spine examination is~negative~for sciatic or femoral nerve irritation with negative~SLR &~femoral stretch tests. Range of motion of the spine is normal~for flexion, extension, and rotations, with no~associated pain. Surgical scar over lumbar spine and mild tenderness around the scar. Strength and pulses are~normal -~bilaterally. Sensation is decreased on his left heel and medial border of foot. Ankles and knees exams are~normal~and no~mal-alignment is evident. He~has no leg length discrepancy. Thigh circumference is~symmetric~with no evidence for muscle atrophy~on both~ sides. Hip ROM (degrees): FL ER At 90~hip FL IR At 90~hip FL AB AD EX IR Neutral hip ER Neutral hip R 90 55 0 45 5 5 15 50 L 95 50 0 45 5 5 15 45 Specific hip and pelvis tests: Quadrant SHELLY Roll Add. Longus R + +++ Negative + L + +++~( Posterior~Capsule) Negative + Glut. Med ITB Pos. Imp R ++ 5/5 strength + 5/5 strength Negative L + 5/5 strength + 5/5 strength Negative Squeeze test measured~weak Bony Symphysis pubis is~pain free~to touch while concentric activity of the rectus abdominis, does not~produce pain at its insertion. Ilio Psos specific tests are~negative for pain during cycling for~both hips~and remarkable for no snap. HF has~no pain on~~both hips. Anterior and posterior~~capsule tenderness on both hips ( L > R ). Greater trochanteric burse is~painful~on both hips~( L > R ). Piriformis tests: FAIR is~negative,~with no~local signs of neuritis related to sciatic nerve. SIJs examination is~normal~with normal~SHELLY in relation and local tenderness. Hamstrings tests are~negative~functional contraction and negative~tendinopathy both hips. On a daily basis, the following percentages reflect~Maurice's overall total pain: Deep hip:~90% GT: 10% Imaging: Radiology studies which I have personally reviewed, analyzed and measured are below: XR: AP of the hip and pelvis: Performed in a~good~technique Coccyx to pubic symphysis distance~1.2~cm. 4 Degrees~caudal. [place] Lines are~preserved. Minimal~Pathological signs are seen in the Symphysis Pubis. Minimal~Pathological signs are seen at the Ischial tuberosity. ~ Specific measurements show: NSA~ LCE Sourcil~Angle Sharp's angle Lat. Cam Lat. Pincer C.Over~sign Head~Coverage % ATDmm R N 28 8 41 ++ - 12-1 79 N L N 24 10 42 ++ - - 75 N Pos. wall sign ISS NAD ~~Dysplasia Comments R + Negative 12.0mm + L + Negative 10.7~mm + Sclerosis Sup. Lat. OA Cysts Joint Space-WBZ Joint Space-Medial R + + Negative 4.8~mm 4.1~mm L + + Negative 5.0~mm 4.4~mm X Table lateral: Anterior cam lesion is~seen~on both hips. Alpha Angle: ~ Right~77~dergrees Left~75~degrees MRI shows:~Mild cartilage damage~- overall good status, no sub chondral edema/ cyst on the left. Right hip: CT: Right hip: Lateral center edge angle: 24 degrees Anterior center edge angle: 49 degrees Equatorial acetabular version angle: 15 degrees anteverted. Cranial acetabular version angle: 3 degrees retroverted. Femoral neck shaft angle: 136 degrees Femoral neck version angle: Retroverted 5 degrees Femoral shaft torsion angle: Lateralized 5 degrees Left hip: Lateral center edge angle: 27 degrees Anterior center edge angle: 48 degrees Equatorial acetabular version angle: 13 degrees anteverted. Cranial acetabular version angle: 1 degrees retroverted. Femoral neck shaft angle: 136 degrees Femoral neck version angle: Retroverted 3 degrees Femoral shaft torsion angle: Lateralized 9 degrees In order to differentiate between the various possible sources of~left hip~pain~ Abilioopted to move forward with an intra articular injection today in clinic. After verbal consent was obtained and Abiliovoiced understanding of risks of infection, misplaced injection, fat or skin atrophy or injection into unintended structures, skin was prepped and draped in routine sterile fashion. With sterile technique, after local skin and subcutaneous tissues were injected with 5cc 1% lidocaine, an injection of 2cc of Kenalog 40 and 5cc of 1% lidocaine +marcaine~was injected into Maurice's~left~hip joint~without complication. The procedure was well tolerated. Abilionoted improved symptoms with activity immediately after injection. The injection took 75% of the pain~away, confirming ~the hip joint as the major source of his~pain. Impression and plan:Shantelle Knoxis a 48 y.o.~active male~suffering from symptomatic bilateral~hip pain due to bilateral~femoroacetabular impingement (EBONY)~cam type,~with~resultant labral tear ( L > R ), femoral retrotorsion (Clinical) and borderline dysplasia~ causing significant disability to him~and altering his~sport and life activities. Physical examination, imaging, and~his~story correspond with the diagnosis mentioned above. I explained that femoroacetabular impingement (EBONY) arises due to a bony or soft tissue conflict between the femur (ball) and acetabulum (socket) caused by an abnormality in the shape of the hip joint. Over time, repetitive impingement can result in damage to the labrum and adjacent surface cartilage within the socket, ultimately giving rise to progressive osteoarthritis of the hip.~He also has retrotorsion of his~femur on both sides which contributes to the impingement significantly. I explained that although a labral tear can be a source of pain, it is rarely the root of the problem and typically occurs secondary to an underlying abnormality in the shape and mechanics of the hip joint. ~ I reviewed conservative treatment options for EBONY including activity modification to avoid positions of impingement, physical therapy, non-steroidal anti-inflammatory medications, and various injections (corticosteroid and PRP) aimed at reducing inflammation in the hip joint or/and preventing dynamic impingement. Although these measures may help to buy time, they are not a definitive solution to the problem given the underlying abnormality in the shape of the hip joint. Patients who have failed conservative management and continue to experience symptoms are candidates for definitive surgical treatment, which may consist of hip arthroscopy alone or in combination with more invasive bony realignment procedures of the femur called ~derotational femoral osteotomy (DFO) . I reviewed the technical aspects of hip arthroscopy including risks, benefits, and expected course of recovery.~Abiliounderstands that hip arthroscopy is a minimally invasive outpatient procedure carried out through small incisions on the outer aspect of the hip joint. During surgery, the labral tear will be identified and either repaired or reconstructed~using bone anchors and suture material. Additionally, any excessive bone will be removed with a high-speed vannessa to reshape the hip joint and restore normal anatomy. Risks include infection, bleeding, injury to nearby nerves or vessels, stiffness, persistent pain, instability, venous thromboembolic disease, and traction related complications including temporary foot numbness. Rarely, revision surgery may be required to address these problems. Overall recovery takes approximately 4~ 8~months depending on the extent of damage and degree of repair. In the event that the labral tissue quality is inadequate for successful repair and healing,~Maurice~understands that a labral reconstruction will be performed. This procedure entails placing a cadaver tissue graft within the hip joint and stabilizing it with bone anchors to build a new labrum. The overall recovery time for labral reconstruction is similar to that of labral repair, although the surgical procedure takes longer to perform. I reviewed the technical aspects of derotational femoral osteotomy (DFO) including risks, benefits, and expected course of recovery.~Abiliounderstands that DFO is a minimally invasive inpatient procedure carried out through a small incision on the outer aspects of the hip joint. The femur bone is cut, realigned, and stabilized with a andi. Risks, potential complications, side effects and recovery from surgical procedure were discussed in length.~ Abiliowill review the info presented. In order to obtain more detailed information regarding the alignment, orientation, and shape of the bony hip and pelvis I ordered~a CT scan. The results of the CT scan, including femoral torsion and acetabular version measured values and 3D images, will aid me in deciding on the best treatment strategy and surgical pre-planning. Abiliois going to contact us after completing his~imaging studies. Abiliois happy with this plan. I have also supplied~him~with handouts, outlining the expected surgical treatment and rehab involved. I wish~Maurice~all the best, ~~ Brendon Briones MD History Information - Allergies/Home Medication List Allergies/Adverse Reactions: adhesive tape Allergy (Verified 10/10/18 17:47) Rash latex Allergy (Verified 10/10/18 17:47) Rash Penicillins Allergy (Verified 10/10/18 17:47) Itching tiotropium bromide [From Spiriva with HandiHaler] Allergy (Verified 10/10/18 17: 47) BLURRY VISION Home Medications: [place] Thyroid 10/10/18 [Last Taken Unknown] Herbals/Supplements -Info Only 10/10/18 [Last Taken Unknown] Nexium 10/10/18 [Last Taken Unknown] Testosterone 10/10/18 [Last Taken Unknown] Ventolin Hfa Inhaler PRN 10/10/18 [Last Taken Unknown] I have personally reviewed and updated: medical history - Social History Smoking Status: Never smoked Review of Systems Review of Systems: Physical Exam Physical Exam:
[2018-10-11] MEDS ORDERED: ceFAZolin 2 GM/DEXTROSE 100 ML IV ONE (11:49)
[2018-10-11] MEDS ORDERED: ACETAMINOPHEN 500 MG TAB PO ONE (11:49)
[2018-10-11] MEDS ORDERED: PREGABALIN 150 MG CAP PO ONE (11:49)
[2018-10-11] MEDS ORDERED: LR 1,000 ML IV ONE (11:50)
[2018-10-11] MEDS ORDERED: CEFAZOLIN 2 GM/DEXTROSE/100 ML BAG IV ONE (12:27)
[2018-10-11] MEDS ORDERED: MIDAZOLAM 2 MG/2 ML VIAL IVP ONE (14:18)
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
[2018-10-11] MEDS ORDERED: LIDOCAINE 1% 300 MG/30 ML SDV ONE ×2 (14:41→15:49)
[2018-10-11] MEDS ORDERED: PROPOFOL 200 MG/20 ML VIAL ONE (14:42)
[2018-10-11] MEDS ORDERED: LIDOCAINE 2% 5 ML SDV ONE (14:42)
[2018-10-11] MEDS ORDERED: ONDANSETRON 4 MG/2 ML VIAL ONE (14:42)
[2018-10-11] MEDS ORDERED: KETOROLAC 30 MG/1 ML SDV ONE ×2 (14:42)
[2018-10-11] MEDS ORDERED: fentaNYL 100 MCG/2 ML INJ ONE (14:42)
[2018-10-11] MEDS ORDERED: PHENYLEPHRINE HCL 100 MCG/ML SYR ONE (15:18)
[2018-10-11] MEDS ORDERED: ePHEDrine SULFATE 25 MG/5 ML SYR ONE (15:18)
[2018-10-11] MEDS ORDERED: fentaNYL 100 MCG/2 ML INJ IVP PRN (16:56)
[2018-10-11] MEDS ORDERED: HYDROCODONE/APAP 5/325 TAB PO PRN (16:56)
[2018-10-11] MEDS ORDERED: ALBUTEROL 3 ML DEYVIAL IH PRN (16:56)
[2018-10-11] MEDS ORDERED: MEPERIDINE 25 MG/0.5 ML AMP IVP PRN (16:56)
[2018-10-11] MEDS ORDERED: ONDANSETRON 4 MG/2 ML VIAL IVP PRN ×2 (16:56→19:37)
[2018-10-11] MEDS ORDERED: LR 500 ML IV PRN (16:56)
[2018-10-11] MEDS ORDERED: NALOXONE HCL 0.4 MG/ML INJ IVP PRN (16:56)
--- NOTE | 2018-10-11 17:19 | POSTANESTH ---
Post Anesthetic Evaluation Cardiovascular Status: Normal, Stable Respiratory Status: Normal, Stable Level of Consciousness/Mental Status: Mildly Sleepy, Arousable Pain Control: Adequate, Prn Tx Ordered Nausea/Vomiting Control: Adequate, Prn Tx Ordered Complications Possibly Related to Anesthesia: None Noted
[2018-10-11] MEDS ORDERED: HYDROmorphONE/DILAUDID 2 MG/ML INJ ONE (17:54)
[2018-10-11] MEDS: HYDROmorphONE/DILAUDID 2 MG/ML INJ IVP PRN ×3 (17:55→18:19)
[2018-10-11] MEDS ORDERED: HYDROmorphONE/DILAUDID 1 MG/ML INJ IVP PRN (19:37)
[2018-10-11] MEDS ORDERED: TEMAZEPAM 15 MG CAP PO PRN (19:37)
[2018-10-11] MEDS ORDERED: ONDANSETRON DISINTEGRATING 4 MG TAB PO PRN (19:37)
[2018-10-11] MEDS ORDERED: PROMETHAZINE HCL 25 MG/ML INJ IVP PRN (19:37)
[2018-10-11] MEDS ORDERED: KETOROLAC 15 MG/1 ML SDV IVP ONE (19:37)
[2018-10-11] MEDS ORDERED: HYDROmorphONE/DILAUDID 2 MG TAB PO PRN (19:42)
--- NOTE | 2018-10-11 22:29 | SUROPNOTE ---
[facility] Operative Report - Surgery Surgery was performed at [facility] on~10/11/18~ Diagnosis: ~Pain generated by screws, post~DFO Indication:~Failure to obtain satisfactory results with long standing conservative measures. ~ Operation:~Bilateral~hip screws removal~from femur Surgeon: Santana Gauthier MD Supervisor [employer]:~~~Ninfa Quintana MD Anaesthetic:~General Operation 1 -~Screw removal (2 screws) from Right femur, s/p DFO nailing: The patient was placed in the supine position. Antibiotics were given. Prepping and draping was performed as per usual fashion. ~Under C arm 1 proximal locking~screw~and 1 distal locking screw, both from previous femur nailing,~were identified. A 1 cm incision was performed corresponding to the previous scar. Subcutaneous tissue was incised. The~2~screws were identified. Using a screwdriver the screws were removed without complication. Hemostasia and irrigation were performed. Closure was performed through different layers. Local anesthetic was applied to the incision. Dressings were applied. ~ Operation 2 - Screw removal (3 screws) from Left femur, s/p DFO nailing: The patient was placed in the supine position. Prepping and draping was performed as per usual fashion. ~Under C arm 1 proximal locking~screw~and 2 distal locking screws, all from previous femur nailing,~were identified. A 1 cm incision was performed corresponding to the previous scar. Subcutaneous tissue was incised. The~3~screws were identified. Using a screwdriver the screws were removed without complication. Hemostasia and irrigation were performed. Closure was performed through different layers. Local anesthetic was applied to the incision. Dressings were applied. ~ Maurice~~tolerated the procedure with no complications. After surgery,~Maurice~~moved both lower limbs and had no NV compromise. ~ Specimen - none Bleeding -~10ml Complication - none Post op instructions: 1. Full~weight bearing 2. Pain killers as prescribed 3. Follow up visit with me as scheduled, where a rehab protocol will be discussed Kind regards, Dr. Santana Gauthier .
[2018-10-12] MEDS: ACETAMINOPHEN 325 MG TAB PO PRN ×2 (05:20→09:51)
[2018-10-12 07:30] VITALS: BP 114/65
[2018-10-12] MEDS ORDERED: ENOXAPARIN 40 MG/0.4 ML SYR SC ONE (08:45)
== END 2018-10-12 10:36 | disposition home or self-care (01) ==
LOC: FSGY 11:34 → F3N 17:41
PROVIDERS: ADMIT Orthopaedic Surgery Sports Medicine; ATTEND Orthopaedic Surgery Sports Medicine
PROC: BQ101ZZ Fluoroscopy of Right Hip using Low Osmolar Contrast (ICD-10-PCS; principal; 2018-10-11 13:30)
PROC: 0QP604Z Removal of Internal Fixation Device from Right Upper Femur, Open Approach (ICD-10-PCS; principal; 2018-10-11 13:30)
PROC: 0QP704Z Removal of Internal Fixation Device from Left Upper Femur, Open Approach (ICD-10-PCS; principal; 2018-10-11 13:30)
DX: Z74.2 Need for assistance at home and no other household member able to render care (principal); T84.84XA Pain due to internal orthopedic prosthetic devices, implants and grafts, initial encounter; J45.909 Unspecified asthma, uncomplicated; E03.9 Hypothyroidism, unspecified; G47.33 Obstructive sleep apnea (adult) (pediatric); K21.9 Gastro-esophageal reflux disease without esophagitis; Z87.442 Personal history of urinary calculi; Z88.0 Allergy status to penicillin
CPT/HCPCS: 20680; 76001; 97116; 97162; G0378; C1713; J0690; J1170; J1650; J1885; J2250; J2370; J2405; J2704; J3010